=== PATIENT | female | born 1955 | race Caucasian/White ===

== ENCOUNTER → 2016-09-14 | Outpatient (CLI) | payer OTHER ==
[~2016-09-14] MED LIST: ADULT LOW DOSE81 MG PO; AMLODIPINE BESYL5 MG PO; ARMOUR THYROID90 M1 PO; CALCIUM; CALCIUM 500 +1 EAC5 PO; CINNAMON; CINNAMON BARK1 GM PO; CO Q-1010 MG PO; COZAAR 50 MG TA50 M2 PO; CRESTOR; ENOXAPARIN30 MG/0.3 SUBQ; GLUCOPHAGE500 MG PO; HYDROCODON-ACE1 EAC7 PO; LIVALO2 MG PO; MAGNESIUM500 MG PO; METFORMIN; METFORMIN HCL500 MG PO; METHYL GUARD PO; NIACIN 500 MG500 M1 PO; NIASPAN PO; NORVASC5 MG PO; OMEGA-31000 M1 PO; PAROXETINE HCL20 MG PO; PAXIL; PROBIOTIC1 EAC1 PO; TRILIPIX45 MG PO; VITAMIN D-32000 UNIT PO
--- NOTE | ~2016-09-14 | EKG ---
[address] [address] ELECTROCARDIOGRAM REPORT Name: VI EVANS Room #: REG [facility]#: [id number] Admission: 09/14/16 Attend Phys: Nae Mack, Discharge: Date of : 53 Report #: [id number] THIS REPORT FOR: //name// [facility] Test Date: 2016-09-14 Test Time: 10:26:58 Pat Name: VI EVANS Department: Room: Gender: F Senior Materials Analyst: Ninoska PHELPS : 1955 Requested By: Nae Mack Order Number: [id number] MD: Tommie Sams Measurements Intervals [place] Rate: 56 P: 68 TN: 183 QRS: 80 QRSD: 82 T: 47 QT: 375 QTc: 362 Interpretive Statements Sinus rhythm Borderline T wave abnormalities Compared to ECG 12/28/2011 06:51:39 Right-axis deviation no longer present T-wave abnormality still present Electronically Signed On 09-14-2016 13:34:50 CDT by Tommie Sams [email or web address] <ELECTRONICALLY SIGNED> By: Tommie Sams MD 09/14/16 1334 1026 1026 Tommie Sams MD /EPI
[2016-09-14 09:52] LABS: HEMATOCRIT 41.6 % (37.0-47.0); HEMOGLOBIN 14.3 gm/dL (12.0-15.0); MCH 32.9 pg (26.0-34.0); MCHC 34.4 g/dL (28.0-37.0); MCV 95.7 fL (80.0-100.0); RBC 4.35 mil/uL (4.20-5.00); RDW 12.2 % (10.5-14.5); WBC 7.6 thou/uL (4.0-11.0)
[2016-09-14 10:15] LABS: CALCIUM 9.7 mg/dL (8.5-10.1); POTASSIUM 4.2 mmol/L (3.5-5.1)
== END ==
LOC: RAD 09:11 → LABMALL 09:11
PROVIDERS: Podiatrist Foot & Ankle Surgery
DX: Z01.818 Encounter for other preprocedural examination (principal); M76.62 Achilles tendinitis, left leg; M77.32 Calcaneal spur, left foot

== ENCOUNTER → 2016-10-18 | Outpatient (CLI) | payer OTHER ==
--- NOTE | ~2016-10-18 | SLE ---
[facility] [address] [place] [address] POLYSOMNOGRAPHY STUDY Name: VI EVANS ILEANA Room #: [facility] M.R.#: [id number] Admission: Attend Phys: Kita Garza MD Discharge: Date of : 53 Report #: [id number] THIS REPORT FOR: //name// CC: Kita Harrell MD HISTORY: A 61-year-old, height 5 feet, trouble sleeping, going to sleep, but not feeling rested when she gets up, wanted to nap for about a year. Usually goes to bed between 10 and 11 p.m., gets out of bed at 8 a.m. Positive history of snoring and daytime somnolence. Does use a dental appliance for grinding teeth. COMMENTS: Total sleep time 392 minutes, sleep efficiency 86%. Sleep latency 5 minutes, REM latency 391 minutes. Central apnea 2, obstructive apnea 2, hypopnea 14. Apnea-hypopnea index 3 events per sleep hour. Non-REM. REM AHI 6.5. Periodic limb movement with arousal index of 6.6 events per sleep hour. Low oxygen saturation 88%. IMPRESSION: 1. Abnormal sleep architecture. 2. Snoring noted. 3. Supine and REM related sleep apnea. Supine AHI 5.5 and REM AHI 6.5. 4. Periodic limb movement with arousal index 6.6 events per sleep hour. 5. PVC. 6. Bruxism. SUGGESTIONS: 1. In addition to specific therapy, the patient should be cautioned regarding driving or operating dangerous machinery unless fully alert. The patient will be cautioned regarding the use of respiratory depressants. 2. Oral appliance or appropriate surgery may be considered with appropriate followup. Further dental over evaluation regarding bruxism is recommended. 3. Further evaluation regarding PVCs. 4. Further discussion regarding restless legs and periodic limb movement disorder is recommended. 5. Sleep position retraining is recommended. 6. Please do not hesitate to contact me if I may be of further assistance. <ELECTRONICALLY SIGNED> By: Kita Garza MD 10/31/16 1920 0834 0915 Kita Garza MD /nt
== END ==
LOC: SLEEPLAB 14:37
DX: G47.33 Obstructive sleep apnea (adult) (pediatric) (principal); G47.10 Hypersomnia, unspecified; R06.83 Snoring; R53.83 Other fatigue

== ENCOUNTER → 2017-02-03 | Outpatient (CLI) | payer OTHER | LOC: RAD 01:34 | DX: Z12.31 Encounter for screening mammogram for malignant neoplasm of breast (principal) ==

== ENCOUNTER → 2017-05-19 | Outpatient (CLI) | payer OTHER | LOC: MRI 05-17 09:25 | DX: R51 Headache (principal); Z91.81 History of falling; R79.89 Other specified abnormal findings of blood chemistry ==

== ENCOUNTER → 2018-06-19 | Outpatient (CLI) | payer OTHER | LOC: MRI 09:16 | DX: M19.072 Primary osteoarthritis, left ankle and foot (principal); M25.772 Osteophyte, left ankle; Z98.890 Other specified postprocedural states ==

== ENCOUNTER 2018-08-03 05:19 | Day surgery (SDC) | payer OTHER ==
[~2018-08-03] VITALS: Ht 165.1 cm; Wt 84.8 kg
[~2018-08-03 05:19] MED LIST changes: +ASPIR 8181 MG PO; +LOSARTAN POTASS50 MG PO; +NORVASC5 M1 PO; +PAXIL 20 MG TAB20 MG PO; +PRILOSEC OTC20 MG PO
[2018-08-03 14:09] VITALS: BP 126/74
[2018-08-03] MEDS ORDERED: PERCOCET 7.5-31 EACH PO (14:41)
[2018-08-03 15:28] VITALS: BP 126/74
--- NOTE | 2018-08-06 17:06 | PATH ---
[facility] [address] [place] [address] PATHOLOGY RPT PROCEDURE Name: BRENDA EVANS ILEANA Room #: DEP [facility] M.R.#: [id number] ������������������ Admission: 08/03/18 ������������������ Date of : 53 Discharge: 08/03/18 Report #: [id number] Path Case #: [id number] L[facility] Accession Number: [id number] . 01 Material submitted: . ankle - LEFT ANKLE MASS. Modifiers: left . 01 Clinical history: . Instability left ankle. . 02 Diagnosis: Mature adipose tissue, left ankle mass, excision: - Compatible with a lipoma. - Fragments of nerves and thick-walled blood vessels identified adjacent to the lipoma. (IUV:yarn man; 08/06/2018) MBR/08/06/2018 . 02 Electronically signed: . Isa Mcclure MD, Pathologist NPI- [id number] . 01 Gross description: . Received in formalin labeled "Brenda Evans, left ankle mass" are multiple fragments of yellow-galicia lobulated soft tissue measuring in aggregate 4.0 x 3.5 x 1.3 cm. Junior Data Analyst sections are submitted in cassette A1. ([facility]; 08/05/2018) SYC/SYC . 02 Pathologist provided ICD-10: D17.24 . 02 CPT . 841131 Specimen Comment: A courtesy copy of this report has been sent to Specimen Comment: [phone]. Specimen Comment: Report sent to DR MARISCAL Performed at: [address], [place], [place] [id number] MD Dariel Jones MD Phone: [phone] Performed at: [address] [id number] MD Isa Mcclure MD Phone: [phone]
--- NOTE | 2018-08-10 09:25 | O ---
[facility] [place] [address] OPERATIVE REPORT Name: HONG EVANSORABob TEJEDA Room #: [facility] M.R.#: [id number] Admission: 08/03/18 ������������������ Attend Phys: Corey Gunn MD Discharge: 08/03/18 ������������������ Date of : 53 Report #: [id number] THIS REPORT FOR: //name// CC: Corey Finn DATE OF SERVICE: 08/03/2018 PREOPERATIVE DIAGNOSES: 1. Left ankle instability. 2. Left ankle synovitis. 3. 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 4. Left ankle mass. POSTOPERATIVE DIAGNOSES: 1. Left ankle instability. 2. Left ankle synovitis. 3. 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 4. Left ankle mass. PROCEDURES: 1. Left ankle arthroscopic debridement with synovectomy. 2. Left ankle Brostrom-Parr lateral ligament reconstruction. 3. Left ankle microfracture osteochondral lesion of the talus. 4. Left ankle mass excision. 5. Left ankle sural nerve neurolysis. SURGEON: Corey Gunn M.D. HEREDITARY CANCER PROGRAM COORDINATOR: Cyndi Lynn. ANESTHESIA: General. ESTIMATED BLOOD LOSS: Minimal. DRAINS: No drains. TOURNIQUET TIME: 1 hour. DESCRIPTION OF PROCEDURE: The patient was brought to the operating room where she was placed under general anesthesia. Once under adequate general anesthesia, her left lower extremity was placed into the arthroscopic thigh support. The left lower extremity was then prepped and draped in a sterile manner and the extremity was elevated, exsanguinated, tourniquet placed at 300 mmHg. A Guhl ankle distractor was then placed across the joint. An anteromedial and anterolateral arthroscopic portal was made in the usual [facility] [address] [place] [address] OPERATIVE REPORT Name: VI EVANS Room #: DEP [facility].Dae.#: [id number] Admission: 08/03/18 ������������������ Attend Phys: Corey Gunn MD Discharge: 08/03/18 ������������������ Date of : 53 Report #: [id number] fashion. Examination of the joint noted significant synovitis in the infrasyndesmotic region and synovectomy was performed now with the arthroscopic shaver. There was an osteochondral lesion of the medial dome of the talus, which was then freed from surrounding cartilage with a probe. This was approximately a 5 mm diameter lesion. This was then debrided with the shaver and a microfracture pick was utilized to perform microfracture on the base of the osteochondral lesion. The wound was then irrigated copiously and the arthroscopic equipment was removed. It should be noted, however, that prior to removal with examining cartilage surfaces, there was some anterior medial cartilage eburnation which was debrided as well. The arthroscopic equipment was removed. The extremity was removed from the arthroscopic thigh support and a posterior lateral incision along a 3 cm mass overlying the sural nerve was then made. This was dissected down through the soft tissue to the mass, which was a large lipomatous type mass, which was freed from the surrounding tissue as well as the sural nerve with tenotomy scissors and subsequently completely excised. The sural nerve was left intact. A curvilinear incision was then made just distal to the fibula and dissection was carried down to the inferior extensor retinaculum, which was identified and tagged for later use. The anterior talofibular ligament and the calcaneofibular ligament were then subsequently incised through the mid portions and then repaired in a shortened position with 0 Ethibond suture. The inferior extensor retinaculum was then advanced to the periosteum of the fibula with 0 Ethibond suture as well. The wounds were irrigated copiously and closed with 2-0 Vicryl in the subcutaneous tissues and debi for the skin. The wounds were dressed with Xeroform, 4 x 4s, and a sterile soft compressive dressing with a short leg cast was placed. Tourniquet was let down approximately one hour. Toes were pink and warm with good capillary refill. There were no complications from the procedure. The patient tolerated the procedure well and went to the recovery room without incident. ��������������������������������������������� <ELECTRONICALLY SIGNED> ���������������������������������������� By: Corey Gunn MD ��������������������������������������������� 08/10/18 0925 1454 1717 Corey Gunn MD /nt
== END 2018-08-03 16:30 | disposition home or self-care (01) ==
LOC: TBA 05:19 → OR 05:19
DX: M25.372 Other instability, left ankle (principal); D17.24 Benign lipomatous neoplasm of skin and subcutaneous tissue of left leg; M65.872 Other synovitis and tenosynovitis, left ankle and foot; M93.272 Osteochondritis dissecans, left ankle and joints of left foot; I12.9 Hypertensive chronic kidney disease with stage 1 through stage 4 chronic kidney disease, or unspecified chronic kidney disease; E11.22 Type 2 diabetes mellitus with diabetic chronic kidney disease; N18.2 Chronic kidney disease, stage 2 (mild); F41.9 Anxiety disorder, unspecified; K21.9 Gastro-esophageal reflux disease without esophagitis; Z90.49 Acquired absence of other specified parts of digestive tract; Z87.891 Personal history of nicotine dependence; Z90.710 Acquired absence of both cervix and uterus; Z86.711 Personal history of pulmonary embolism; Z88.8 Allergy status to other drugs, medicaments and biological substances; Z79.01 Long term (current) use of anticoagulants; Z87.19 Personal history of other diseases of the digestive system; Z98.890 Other specified postprocedural states; Z79.899 Other long term (current) drug therapy; Z79.82 Long term (current) use of aspirin
CPT/HCPCS: 50010; 50101; 50386; 51038; 51291; 51412; 51647; 54170; 56524; 56526; 56529; 57091; 57103; 57180; 62110; 62900; 70005

== ENCOUNTER → 2018-09-11 | Outpatient (CLI) | payer OTHER ==
[~2018-09-11] MED LIST changes: +PERCOCET 7.5-31 EACH PO
== END ==
LOC: CAT 08:10
DX: I70.0 Atherosclerosis of aorta (principal); I70.8 Atherosclerosis of other arteries; K56.41 Fecal impaction; Z87.19 Personal history of other diseases of the digestive system; Z79.4 Long term (current) use of insulin

== ENCOUNTER → 2018-09-24 | Outpatient (CLI) | payer OTHER ==
[~2018-09-24] VITALS: Ht 165.1 cm; Wt 84.8 kg
[~2018-09-24] MED LIST changes: +DHEA25 MG PO; +MAGOX 400400 MG PO; +NATROL 5-HTP50 MG PO; +SYNTHROID75 MCG PO; +XANAX 0.5 MG0.5 MG PO; +ZINC50 M1 PO; +[UNRECOGNIZED DRUG - OTHER] PO; +[UNRECOGNIZED DRUG - OTHER] PO; +[UNRECOGNIZED DRUG - OTHER] PO; +[UNRECOGNIZED DRUG - OTHER] PO
--- NOTE | ~2018-09-24 | P ---
[facility] [place] [address] PROCEDURE REPORT Name: NATHANVI ILEANA Room #: REG [facility].#: [id number] Admission: 09/24/18 ������������������ Attend Phys: Dwain Verdin MD Discharge: ������������������ Date of : 53 Report #: [id number] THIS REPORT FOR: //name// CC: Dwain Finn MD DATE OF SERVICE: 09/24/2018 BRIEF HISTORY: The patient is a 63-year-old woman with recent change in bowel habits. She is now having hard constipated, pellet-like stools. She may go 2-3 days without a movement. PREOPERATIVE DIAGNOSIS: Change in bowel habits. POSTOPERATIVE DIAGNOSIS: Colon polyps. MEDICATIONS: Deep sedation with propofol per anesthesia. SPECIMENS: 1. Diminutive polyp, proximal ascending colon. 2. Diminutive polyp at 80 cm. 3. Diminutive polyp, rectum. ESTIMATED BLOOD LOSS: 3 mL. PROCEDURE: Colonoscopy to cecum and terminal ileum with biopsy. FINDINGS: Prior to propofol sedation, procedure of colonoscopy was discussed with the patient as well as potential risks, benefits and its complications. She indicates she understands and desires to proceed. With the patient in left lateral decubitus position, digital examination was completed, which revealed no abnormalities. Subsequently, the Olympus video colonoscope was introduced in the rectum and advanced under direct vision to the cecum. Done with minimal difficulty. Cecum was identified by the ileocecal valve and the appendiceal orifice. I was able to advance the scope across the ileocecal valve and examined the distal segment of terminal ileum, which was inspected and noted to be unremarkable. At that point, the scope was slowly withdrawn and careful circumferential views obtained. Upon slow withdrawal of the scope, the prep was good. The mucosa was within normal limits, normal vascular pattern, normal light reflex. There were periods of spasticity, which finally settled down and overall reasonably good views were obtained in the colon. The mucosa was within normal limits, normal vascular pattern, normal light reflex. In the proximal ascending colon, a diminutive polyp was seen and removed with biopsy forceps. At 80 cm, another was removed with biopsy forceps. No additional abnormalities were seen until the rectum was reached. There were multiple diminutive [facility] [address] [place] [address] PROCEDURE REPORT Name: NATHANHONGVI [facility] Room #: REG [facility].#: [id number] Admission: 09/24/18 ������������������ Attend Phys: Dwain Verdin MD Discharge: ������������������ Date of : 53 Report #: [id number] hyperplastic polyps in the rectum, one was slightly larger and looked a little different and was removed with biopsy forceps, but it was still a small polyp. Upon retroflexion, no additional abnormalities were seen. Scope was withdrawn. The patient tolerated the procedure well. CONDITION OF THE PATIENT UPON DISCHARGE: Following procedure, the patient was drowsy, aroused, conversant and will be discharged home when fully ambulatory. INSTRUCTIONS TO THE PATIENT AND FAMILY AT THE TIME OF DISCHARGE: We will follow up on pathology and make further recommendations. If all 3 polyps are adenomas, she is to return in 3 years; if only 1 or 2 adenomas, then 5 years would be indicated. If none are adenomas, then 10 years would be indicated. As for her change in bowel habits, difficulty with stools, I do not find any obstructing lesions or significant neoplastic processes. Agree with use of MiraLax, may use daily if needed. She does have diabetes and if not checked, checking thyroid function studies would be helpful as well. ��������������������������������������������� ���������������������������������������� By: ��������������������������������������������� 1131 17 Dwain Verdin MD /nt
--- NOTE | 2018-09-26 17:06 | PATH ---
[facility] [address] [place] [address] PATHOLOGY RPT PROCEDURE Name: NATHANBRENDA ILEANA Room #: REG [facility]#: [id number] ������������������ Admission: 09/24/18 ������������������ Date of : 53 Discharge: Report #: [id number] Path Case #: [id number] LCA Accession Number: [id number] . 01 Material submitted: . PART A: colon - BX POLYP AT PROXIMAL ASCENDING COLON. Modifiers: ascending, proximal PART B: colon - BX POLYP AT 80CM PART C: rectum - BX POLYP AT RECTUM . 01 Clinical history: . Preop DX: Hx polyps Postop DX: Colon polyps, rectal polyp . 02 Diagnosis: A. Polyp, at proximal ascending colon, endoscopic biopsy: - Tubular adenoma. - Negative for high grade dysplasia. . B. Polyp, at 80 cm, endoscopic biopsy: - Hyperplastic polyp. - Negative for dysplasia. . C. Polyp, at rectum, endoscopic biopsy: - Hyperplastic polyp. - Negative for dysplasia. (IUV/db; 09/26/2018) LBQ/09/26/2018 . 02 Electronically signed: . Isa Mcculre MD, Pathologist NPI- [id number] . 01 Gross description: . A. Received in formalin labeled "Brenda Evans, ABDI polyp proximal ascending colon," are four segments of galicia soft tissue measuring 0.6 x 0.5 x 0.2 cm in aggregate dimensions and ranging from 0.2 to 0.4 cm in maximum dimension. The specimen is submitted entirely in cassette A1. . B. Received in formalin labeled "Brenda Evans, ABDI polyp at 80 cm," is a segment of galicia soft tissue measuring 0.4 x 0.3 x 0.2 cm in greatest dimensions. The specimen is submitted entirely in cassette B1. . C. Received in formalin labeled "Brenda Evans, ABDI polyp at rectum," is a segment of pale galicia soft tissue measuring 0.3 x 0.3 x 0.3 cm in greatest dimensions. The specimen is submitted entirely in cassette C1. ([facility]; 09/25/2018) [place] [address] PATHOLOGY RPT PROCEDURE Name: BRENDA EVANS ILEANA Room #: REG [facility] Janey#: [id number] ������������������ Admission: 09/24/18 ������������������ Date of : 53 Discharge: Report #: [id number] Path Case #: [id number] XDC/XDC . 02 Pathologist provided ICD-10: D12.2, K63.5, K62.1 . 02 CPT . 240084, 741095, 493133 Specimen Comment: A courtesy copy of this report has been sent to Specimen Comment: [phone], . Specimen Comment: Report sent to / DR MARISCAL Performed at: [address], [place] [id number] MD Dariel Jones MD Phone: [phone] Performed at: [address] [id number] MD Isa Mcclure MD Phone: [phone]
== END | disposition home or self-care (01) ==
LOC: GI 08:40
DX: D12.2 Benign neoplasm of ascending colon (principal); K63.5 Polyp of colon; I12.9 Hypertensive chronic kidney disease with stage 1 through stage 4 chronic kidney disease, or unspecified chronic kidney disease; N18.2 Chronic kidney disease, stage 2 (mild); E11.22 Type 2 diabetes mellitus with diabetic chronic kidney disease; E03.9 Hypothyroidism, unspecified; F32.9 Major depressive disorder, single episode, unspecified; F41.9 Anxiety disorder, unspecified; K21.9 Gastro-esophageal reflux disease without esophagitis; Z90.49 Acquired absence of other specified parts of digestive tract; Z86.010 Personal history of colon polyps; Z98.890 Other specified postprocedural states; Z79.899 Other long term (current) drug therapy; Z87.891 Personal history of nicotine dependence; Z87.19 Personal history of other diseases of the digestive system; Z86.711 Personal history of pulmonary embolism; Z79.01 Long term (current) use of anticoagulants; Z88.8 Allergy status to other drugs, medicaments and biological substances
CPT/HCPCS: 62110; 62900

== ENCOUNTER → 2019-01-21 | Outpatient (CLI) | payer OTHER ==
--- NOTE | 2019-01-21 09:46 | 2DMMODE ---
[facility] [employer] [place] [address] 2 D/M-MODE ECHOCARDIOGRAM Name: VI EVANS Room #: [facility]#: [id number] Admission: 01/21/19 Attend Phys: Rohit Miranda MD Discharge: Date of : 53 Report #: [id number] THIS REPORT FOR: //name// APPROVED REPORT Study performed: 01/21/2019 08:55:50 EXAM: Comprehensive 2D, Doppler, and color-flow Echocardiogram Patient Location: Out-Patient Status: routine BSA: 1.90 HR: 56 bpm BP: 126/70 mmHg Rhythm: NSR Other Information Study Quality: Good Indications History of syncope. HTN, HLP. 2D Dimensions RVDd: 27.48 mm IVSd: 9.45 (7-11mm) LVOT Diam: 18.08 (18-24mm) LVDd: 45.28 mm PWd: 9.69 (7-11mm) Ascending Ao: 27.60 (22-36mm) LVDs: 31.52 (25-40mm) Aortic Root: 28.95 mm Volumes Left Atrial Volume (Systole) Single Plane 4CH: 45.12 mL Single Plane 2CH: 49.22 mL LA ESV Index: 28.00 mL/m2 Aortic Valve AoV Peak Luis.: 1.59 m/s AO Peak Gr.: 10.06 mmHg LVOT Max P.99 mmHg LVOT Max V: 1.32 m/s MARITA Vmax: 2.14 cm2 Mitral Valve E/A Ratio: 1.4 MV Decel. Time: 152.39 ms MV E Max Luis.: 1.08 m/s [facility] [address] [place] [address] 2 D/M-MODE ECHOCARDIOGRAM Name: VI EVANS ILEANA Room #: [facility]#: [id number] Admission: 01/21/19 Attend Phys: Rohit Miranad MD Discharge: Date of : 53 Report #: [id number] MV A Luis.: 0.75 m/s MV PHT: 44.19 ms IVRT: 96.89 ms Pulmonary Valve PV Peak Luis.: 1.09 m/s PV Peak Gr.: 4.79 mmHg Pulmonary Vein P Vein S: 0.56 m/s P Vein A: 0.33 m/s P Vein D: 0.43 m/s P Vein A Dur.: 156.9 msec P Vein S/D Ratio: 1.30 Tricuspid Valve RAP Estimate: 5.00 mmHg Left Ventricle The left ventricle is normal size. There is normal LV segmental wall motion. There is normal left ventricular wall thickness. Left ventricular systolic function is normal. LVEF is 55-60%. The left ventricular diastolic function is normal. Right Ventricle The right ventricle is normal size. The right ventricular systolic function is normal. Atria The left atrium size is normal. The right atrium size is normal. Aortic Valve The aortic valve is normal in structure. No aortic regurgitation is present. There is no aortic valvular stenosis. Mitral Valve The mitral valve is normal in structure. Mild to moderate mitral regurgitation. Tricuspid Valve The tricuspid valve is normal in structure. Trace tricuspid regurgitation. Unable to assess PA pressure. Pulmonic Valve The pulmonary valve is normal in structure. Trace pulmonic regurgitation. Great Vessels [facility] [address] [place] [address] 2 D/M-MODE ECHOCARDIOGRAM Name: NATHANVI [facility] Room #: [facility] [id number] Admission: 01/21/19 Attend Phys: Rohit Miranda MD Discharge: Date of : 53 Report #: [id number] The aortic root is normal in size. The ascending aorta is normal in size. IVC is normal in size and collapses >50% with inspiration. Pericardium There is no pericardial effusion. <Conclusion> The left ventricle is normal size. There is normal left ventricular wall thickness. Left ventricular systolic function is normal. The right ventricle is normal size. The left atrium size is normal. The aortic valve is normal in structure. Mild to moderate mitral regurgitation. Trace tricuspid regurgitation. <ELECTRONICALLY SIGNED> By: Rohit Miranda MD 01/21/19 0945 0945 0945 Rohit Miranda MD /DANISHA
== END ==
LOC: CV 08:45
DX: I34.0 Nonrheumatic mitral (valve) insufficiency (principal); I25.812 Atherosclerosis of bypass graft of coronary artery of transplanted heart without angina pectoris; I10 Essential (primary) hypertension; E78.5 Hyperlipidemia, unspecified; Z88.2 Allergy status to sulfonamides; Z88.8 Allergy status to other drugs, medicaments and biological substances

== ENCOUNTER → 2019-11-25 | Outpatient (CLI) | payer OTHER ==
[~2019-11-25] VITALS: Ht 165.1 cm; Wt 86.2 kg
[~2019-11-25] MED LIST changes: +ASA81BEC PO; +DHEA TABLET1 EACH PO; +DIGESTIVE ENZY220 MG PO; +LEVO-T100 MCG PO; +REPATHA SY140 MG/1 M SUBQ; +STOOL SOFTENER100 MG PO; +VITAMIN C500 M2 PO
--- NOTE | 2019-11-25 10:53 | P ---
[facility] [place] [address] PROCEDURE REPORT Name: VI EVANS Room #: REG [facility]#: [id number] Admission: 11/25/19 Attend Phys: Dwain Verdin MD Discharge: Date of : 53 Report #: [id number] THIS REPORT FOR: cc: Jean-Pierre Finn Steven F. DO Thesing, John A. MD ~ CC: Dwain Finn MD DATE OF SERVICE: 11/25/2019 OUTPATIENT UPPER ENDOSCOPY BRIEF HISTORY: The patient is a 64-year-old woman who has a history of reflux disease. She has been taking omeprazole 20 mg daily and continues with reflux symptoms. In spite of that medication, she describes symptoms in particular at night with burning in her chest and also regurgitation of food. It is noted 2 years ago, gastric emptying study was normal. She also has intermittent episodes of solid food dysphagia, which she manages with drinking water. PREOPERATIVE DIAGNOSES: Increasing reflux symptoms on PPI therapy and solid food dysphagia. POSTOPERATIVE DIAGNOSES: 1. Grade A esophagitis. 2. Less than 2 cm sliding type hiatus hernia. 3. Gastritis with multiple antral erosions. MEDICATIONS: Deep sedation with propofol per Anesthesia. SPECIMEN: Biopsies of gastritis. ESTIMATED BLOOD LOSS: 3 mL. PROCEDURE: EGD with biopsy. FINDINGS: Prior to propofol sedation, the procedure of upper endoscopy was discussed with the patient as well as potential risks and its complications. She indicates she understands and desires to proceed. DESCRIPTION OF PROCEDURE: With the patient in left lateral decubitus position, the Olympus video endoscope was inserted in the cervical esophagus under direct vision without difficulty. Examination of this organ through its entire length revealed normal esophageal mucosa down the squamocolumnar junction. However, at [facility] [address] [place] [address] PROCEDURE REPORT Name: VI EVANS [facility] [id number] Admission: 11/25/19 Attend Phys: Dwain Verdin MD Discharge: Date of : 53 Report #: [id number] the squamocolumnar junction, she was noted to have a couple of erosions which were limited to squamocolumnar junction. There is no evidence of Duque's esophagus, strictures or masses. Intermittently, a very trivial sliding type hiatus hernia of less than 2 cm was seen. The scope was advanced in the stomach, was examined on end view as well as retroflexed views. Examination of the proximal stomach revealed normal mucosa. Upon retroflexion, no mass lesions were seen. Examination of the distal stomach revealed scattered erosions in the antrum, but no ulcers or bleeding. In addition, she has had a previous cholecystectomy, but she was not noted to have a significant amount of bile in the stomach. The pylorus was unremarkable. Duodenal bulb was unremarkable. Postbulbar duodenal sweep were inspected and noted to be unremarkable. At that point, the scope was slowly withdrawn and careful circumferential views were obtained. The patient tolerated the procedure well. Subsequently, she was dilated with passage of a 50-Bermudian Zapata dilator. There was no resistance. CONDITION OF THE PATIENT UPON DISCHARGE: Following procedure, the patient drowsy, aroused, conversant and will be discharged home when fully ambulatory. INSTRUCTIONS TO THE PATIENT AND FAMILY AT THE TIME OF DISCHARGE: She clearly has evidence of active reflux disease, on PPI therapy. We will maximize her therapy at this point in time. We will have her take pantoprazole 40 mg twice daily and also we will have her use famotidine 40 mg at bedtime due to her nighttime symptoms. She is to follow up in the office about 6-8 weeks. If her symptoms cannot be controlled with medical therapy, an antireflux procedure may be indicated. <ELECTRONICALLY SIGNED> By: Dwain Verdin MD 11/25/19 1053 0819 0848 Dwain Verdin MD /nt
--- NOTE | 2019-11-26 17:06 | PATH ---
[facility] [address] [place] [address] PATHOLOGY RPT PROCEDURE Name: NATHANBRENDA ILEANA Room #: REG JOSE RAMON Toth#: [id number] Admission: 11/25/19 Date of : 53 Discharge: Report #: [id number] Path Case #: [id number] [facility] Accession Number: [id number] . 01 Material submitted: . stomach - BIOPSY OF GASTRITIS R/O H. PYLORI . 01 Clinical history: . REFLUX, DYSPHAGIA EGD/REFULX/COVID TEST . 02 Diagnosis: Gastric mucosa, gastritis rule out H. pylori, endoscopic biopsy: - Moderate reactive gastropathy. - Negative for intestinal metaplasia or atrophy. - Negative for Helicobacter pylori (properly-controlled immunohistochemical stain performed). . (IUV:mml; 11/26/2019) QLM 11/26/2019 1230 Local . 02 Electronically signed: . Isa Mcclure MD, Pathologist NPI- [id number] . 01 Gross description: . The specimen is received in formalin, labeled "Brenda Contrerasgan, biopsy gastritis, R/O H. pylori". Received are four segments of pale galicia soft tissue ranging in size from 0.3 to 0.5 cm in maximum dimensions. The specimen is submitted entirely in cassette A1. (CAA; 11/25/2019) QAC/QA 11/25/2019 1745 Local . 02 Pathologist provided ICD-10: K31.9 . 02 CPT . 328132, [id number] Specimen Comment: A courtesy copy of this report has been sent to [phone] Specimen Comment: [phone], Specimen Comment: Report sent to ,DR CIFUENTES / DR MARISCAL Performed at: [address] [id number] MD Dariel Jones MD Phone: [phone] Performed at: [address] [id number] PATHOLOGY RPT PROCEDURE Name: BRENDA EVANS Room #: REG JOSE RAMON Toth#: [id number] Admission: 11/25/19 Date of : 53 Discharge: Report #: [id number] Path Case #: [id number] [address] [id number] MD Isa Mcclure MD Phone: [phone]
== END | disposition home or self-care (01) ==
LOC: GI 06:17
PROVIDERS: ATTEND Specialist
DX: K31.9 Disease of stomach and duodenum, unspecified (principal); K21.0 Gastro-esophageal reflux disease with esophagitis; K29.70 Gastritis, unspecified, without bleeding; K44.9 Diaphragmatic hernia without obstruction or gangrene; I12.9 Hypertensive chronic kidney disease with stage 1 through stage 4 chronic kidney disease, or unspecified chronic kidney disease; E11.22 Type 2 diabetes mellitus with diabetic chronic kidney disease; N18.2 Chronic kidney disease, stage 2 (mild); E03.9 Hypothyroidism, unspecified; F32.9 Major depressive disorder, single episode, unspecified; F41.9 Anxiety disorder, unspecified; Z98.890 Other specified postprocedural states; Z79.899 Other long term (current) drug therapy; Z20.828 Contact with and (suspected) exposure to other viral communicable diseases; Z87.891 Personal history of nicotine dependence; Z90.49 Acquired absence of other specified parts of digestive tract; Z90.710 Acquired absence of both cervix and uterus; Z87.19 Personal history of other diseases of the digestive system; Z86.711 Personal history of pulmonary embolism; Z79.01 Long term (current) use of anticoagulants
CPT/HCPCS: 62110; 62900

== ENCOUNTER → 2020-01-08 | Outpatient (CLI) | payer OTHER | LOC: SJCVCIMAG 11:46 | PROVIDERS: ATTEND Internal Medicine Cardiovascular Disease | DX: I34.0 Nonrheumatic mitral (valve) insufficiency (principal); I12.9 Hypertensive chronic kidney disease with stage 1 through stage 4 chronic kidney disease, or unspecified chronic kidney disease; E11.22 Type 2 diabetes mellitus with diabetic chronic kidney disease; N18.2 Chronic kidney disease, stage 2 (mild); I25.10 Atherosclerotic heart disease of native coronary artery without angina pectoris; E78.00 Pure hypercholesterolemia, unspecified; R60.9 Edema, unspecified; K21.9 Gastro-esophageal reflux disease without esophagitis; E78.5 Hyperlipidemia, unspecified; G47.30 Sleep apnea, unspecified; Z82.49 Family history of ischemic heart disease and other diseases of the circulatory system; Z79.82 Long term (current) use of aspirin; Z79.899 Other long term (current) drug therapy; Z87.891 Personal history of nicotine dependence ==

== ENCOUNTER → 2020-06-19 | Outpatient (CLI) | payer OTHER | LOC: LAB 09:42 | PROVIDERS: ATTEND Specialist | DX: Z01.812 Encounter for preprocedural laboratory examination (principal); Z20.822 Contact with and (suspected) exposure to COVID-19 ==

== ENCOUNTER → 2020-06-24 | Outpatient (CLI) | payer OTHER ==
[~2020-06-24] VITALS: Ht 165.1 cm; Wt 79.8 kg
[~2020-06-24] MED LIST changes: +MAGNESIUM CITR100 MG PO; +XANAX 0.25 MG0.25 MG PO; +ZETIA10 MG PO
--- NOTE | 2020-06-26 10:57 | P ---
[facility] [place] [address] PROCEDURE REPORT Name: VI EVANS ILEANA Room #: REG JOSE RAMON Toth#: [id number] Admission: 06/24/20 Attend Phys: Jose Piña Discharge: Date of : 53 Report #: [id number] THIS REPORT FOR: cc: Jean-Pierre Finn,Jean-Pierre Vyas,Jose Levine MD ~ DATE OF SERVICE: 06/24/2020 PROCEDURE PERFORMED: Upper endoscopy with biopsies and esophageal dilation. HISTORY OF PRESENT ILLNESS: The patient is a 64-year-old female who has a long history of gastroesophageal reflux disease, who was followed by my partner, Dr. Verdin in the past, who is now retired. Last upper endoscopy 11/25/2019 for reflux symptoms despite taking omeprazole 20 mg on a daily basis at that time. She also had intermittent dysphagia, grade A erosive esophagitis was noted at that time. A small hiatal hernia, mild gastritis was seen. Dilation was performed. The patient's Prilosec was increased to b.i.d. Biopsies were negative for H. pylori at that time. She now has recurrent dysphagia as well as chronic cough. She is taking Prilosec b.i.d. currently. Plan is for repeat upper endoscopy. DESCRIPTION OF PROCEDURE: The risks and benefits of the procedure were explained to the patient, those risks including but not limited to bleeding, perforation and the risk of sedation. She understood these risks and gave informed consent. Sedation was given using propofol per anesthesia. Next, using a standard Olympus upper endoscope, the scope was placed in the patient's mouth and advanced under direct vision through the esophagus, stomach and into the second portion of the duodenum. The esophagus was normal throughout. The GE junction was normal. No evidence of esophagitis or stricture was seen. Upon entering the stomach, a small hiatal hernia was noted. Overall, the gastric mucosa was normal in the fundus and body. In the antrum; however, there was a mild gastritis with several small erosions. No evidence of bleeding. Biopsies were obtained. The pylorus was normal and patent. The duodenal bulb, first and second portion were all normal. The scope was then brought back up into the patient's stomach and a Savary guidewire was inserted through the scope, leaving the guidewire in place as the scope was then withdrawn. Next, a 51-Yi Savary dilation was performed of the esophagus without difficulty. The wire and dilator removed. The scope was reintroduced into the patient's stomach. There was no evidence of mucosal tear after dilation. The scope was then withdrawn and the procedure terminated. The patient tolerated the procedure well. IMPRESSION: 1. Mild gastritis with several antral erosions. 2. Small hiatal hernia. 3. Otherwise, normal upper endoscopy. [address] [address] PROCEDURE REPORT Name: VI EVANS ILEANA Room #: REG JOSE RAMON Toth#: [id number] Admission: 06/24/20 Attend Phys: Jose Piña Discharge: Date of : 53 Report #: [id number] RECOMMENDATIONS: 1. Await biopsy results. 2. Continue current regimen of Prilosec b.i.d. 3. Observe status post dilation. Thank you for allowing me to participate in her care. <ELECTRONICALLY SIGNED> By: Jose Livingston MD 06/26/20 [id number] Jose Livingston MD /nt
--- NOTE | 2020-06-26 19:07 | PATH ---
[facility] [address] [place] [address] PATHOLOGY RPT PROCEDURE Name: BRENDA EVANS ILEANA Room #: REG JOSE RAMON Toth#: [id number] Admission: 06/24/20 Date of : 53 Discharge: Report #: [id number] Path Case #: [id number] [facility] Accession Number: [id number] . 01 Material submitted: . gastrointestinal site - BIOPSY OF GASTRITIS R/O H PYLORI . 01 Clinical history: . EGD . 02 Diagnosis: Gastric mucosa, gastritis rule out H. pylori, endoscopic biopsy: - Mild reactive gastropathy. - Negative for intestinal metaplasia or atrophy. - Negative for Helicobacter pylori (properly controlled immunohistochemical stain performed). (IUV/db; 06/26/2020) LBQ 06/26/2020 1259 Local . 02 Electronically signed: . Isa Mcclure MD, Pathologist NPI- [id number] . 01 Gross description: . The specimen is received in formalin, labeled "Brenda Evans, biopsy of gastritis". Received are two segments of pale galicia tissue measuring 0.3 and 0.4 cm in maximum dimensions. The specimen is submitted entirely in cassette A1. (CAA; 06/25/2020) QAC/QAC 06/25/2020 1731 Local . 02 Pathologist provided ICD-10: K31.9 . 02 CPT . 225496, [id number] Specimen Comment: A courtesy copy of this report has been sent to [phone] Specimen Comment: [phone] Specimen Comment: Report sent to DR MARISCAL / DR TOMAS Performed at: [address] [id number] MD Champ العلي MD Phone: [phone] Performed at: [address] [id number] [facility] [address] [place] [address] PATHOLOGY RPT PROCEDURE Name: BRENDA EVASN Room #: REG JOSE RAMON Toth#: [id number] Admission: 06/24/20 Date of : 53 Discharge: Report #: [id number] Path Case #: [id number] MD Isa Mcclure MD Phone: [phone]
== END | disposition home or self-care (01) ==
LOC: GI 08:33
PROVIDERS: ATTEND Specialist
DX: R13.10 Dysphagia, unspecified (principal); K21.9 Gastro-esophageal reflux disease without esophagitis; K29.70 Gastritis, unspecified, without bleeding; K44.9 Diaphragmatic hernia without obstruction or gangrene; K31.9 Disease of stomach and duodenum, unspecified; I12.9 Hypertensive chronic kidney disease with stage 1 through stage 4 chronic kidney disease, or unspecified chronic kidney disease; E11.22 Type 2 diabetes mellitus with diabetic chronic kidney disease; N18.2 Chronic kidney disease, stage 2 (mild); E03.9 Hypothyroidism, unspecified; E78.00 Pure hypercholesterolemia, unspecified; F32.9 Major depressive disorder, single episode, unspecified; F41.9 Anxiety disorder, unspecified; Z98.890 Other specified postprocedural states; Z79.899 Other long term (current) drug therapy; Z87.891 Personal history of nicotine dependence; Z90.710 Acquired absence of both cervix and uterus; Z90.49 Acquired absence of other specified parts of digestive tract; Z87.19 Personal history of other diseases of the digestive system
CPT/HCPCS: 62110; 62900

== ENCOUNTER → 2021-01-25 | Outpatient (CLI) | payer OTHER | LOC: SJCVC 13:37 | PROVIDERS: ATTEND Internal Medicine Cardiovascular Disease | DX: R94.31 Abnormal electrocardiogram [ECG] [EKG] (principal); I65.21 Occlusion and stenosis of right carotid artery; I25.10 Atherosclerotic heart disease of native coronary artery without angina pectoris; E78.00 Pure hypercholesterolemia, unspecified; I12.9 Hypertensive chronic kidney disease with stage 1 through stage 4 chronic kidney disease, or unspecified chronic kidney disease; E11.22 Type 2 diabetes mellitus with diabetic chronic kidney disease; N18.2 Chronic kidney disease, stage 2 (mild); E78.5 Hyperlipidemia, unspecified; E07.89 Other specified disorders of thyroid; K21.9 Gastro-esophageal reflux disease without esophagitis; Z88.8 Allergy status to other drugs, medicaments and biological substances; Z79.82 Long term (current) use of aspirin; Z79.899 Other long term (current) drug therapy; Z90.710 Acquired absence of both cervix and uterus; Z90.49 Acquired absence of other specified parts of digestive tract; Z98.890 Other specified postprocedural states; Z79.891 Long term (current) use of opiate analgesic; Z72.89 Other problems related to lifestyle ==

== ENCOUNTER → 2021-02-08 | Outpatient (CLI) | payer OTHER | LOC: SJCVCIMAG 07:38 | PROVIDERS: ATTEND Internal Medicine Cardiovascular Disease | DX: I65.23 Occlusion and stenosis of bilateral carotid arteries (principal); E11.9 Type 2 diabetes mellitus without complications; I10 Essential (primary) hypertension ==